=== PATIENT | male | born 1995 | race Caucasian/White ===

== ENCOUNTER 2018-01-22 12:56 | Emergency (ER) | payer SELFPAY ==
[2018-01-22 13:03] VITALS: BP 151/71; PULSE 95; RESP 20; TEMP 98.2; O2SAT 98
--- NOTE | 2018-01-22 13:32 | RADRPT ---
EXAM DATE: 01/22/2018 1:25 PM EDT AGE/SEX: 22 years / Male INDICATIONS: Chest pain. CLINICAL DATA: This is the patient's initial encounter. Patient reports that signs and symptoms have been present for 1 day and indicates a pain score of 10/10. MEDICAL/SURGICAL HISTORY: None. None. COMPARISON: No prior exams available for comparison. FINDINGS: PA and lateral views of the chest demonstrate the lungs to be symmetrically aerated without evidence of mass, infiltrate or effusion. The cardiomediastinal contours are unremarkable. Osseous structures are intact. CONCLUSION: Negative examination. Electronically signed by: Michael Carter MD 01/22/2018 1:31 PM EDT
[2018-01-22 14:19] LABS: AUTOMATED NEUTROPHIL # 10.6 TH/MM3 (1.8-7.7); BASOPHIL % 0.4 % (0.0-2.0); EOSINOPHIL # 0.2 TH/MM3 (0-0.4); EOSINOPHIL % 1.8 % (0.0-4.0); HEMATOCRIT 42.8 % (39.0-51.0); HEMOGLOBIN 15.1 GM/DL (13.0-17.0); LYMPH % 11.3 % (9.0-44.0); LYMPHOCYTE # 1.5 TH/MM3 (1.0-4.8); MEAN CORPUSCULAR HEMOGLOBIN 28.2 PG (27.0-34.0); MEAN CORPUSCULAR HGB CONC 35.2 % (32.0-36.0); MEAN PLATELET VOLUME 7.5 FL (7.0-11.0); MONO % 7.8 % (0.0-8.0); MONOCYTE # 1.1 TH/MM3 (0-0.9); NEUT % 78.7 % (16.0-70.0); PLATELET COUNT 194 TH/MM3 (150-450); RED BLOOD COUNT 5.35 MIL/MM3 (4.50-5.90); RED CELL DISTRIBUTION WIDTH 12.4 % (11.6-17.2); WHITE BLOOD COUNT 13.5 TH/MM3 (4.0-11.0)
[2018-01-22 14:28] LABS: BICARBONATE 23.8 MEQ/L (21.0-32.0); CREATININE 0.97 MG/DL (0.60-1.30)
--- NOTE | 2018-01-22 14:31 | PD ---
HPI Chief Complaint: Chest Pain Time Seen by Provider: 14:21 Travel History International Travel<30 days: No Contact w/Intl Traveler<30days: No Traveled to known affect area: No History of Present Illness HPI Patient comes to the emergency department complaining of right-sided chest pain that began yesterday morning when he awoke. Patient reports a day before he had gone fishing when he woke up yesterday some soreness in the right side of his chest. Patient reports that he went to a more fishing yesterday and the pain got progressively worse. Patient reports taking ibuprofen and Percocet for the pain he had from recent dental procedure with minimal to no improvement symptoms. Pain is worse with certain movement, cough, sneezing, and deep inspiration. Denies any direct trauma or fevers. Denies any sudden or family history of heart disease before age 30. [facility] Past Medical History Medical History: Denies Significant Hx Social History Alcohol Use: No Tobacco Use: No Substance Use: No Review of Systems Except as stated in HPI: all other systems reviewed are Neg Physical Exam Narrative GENERAL: Well-developed, overly nourished, in no acute distress, and non-ill appearing. SKIN: Focused skin assessment warm and dry. HEAD: Atraumatic. Normocephalic. EYES: Pupils equal and round. EOMI. No scleral icterus. No injection or drainage. ENT: No nasal bleeding or discharge. Mucous membranes pink and moist. NECK: Trachea midline. No JVD. Supple. No nuclear rigidity. CARDIOVASCULAR: Regular rate and rhythm. No murmur appreciated. RESPIRATORY: No accessory muscle use. No respiratory distress. Clear to auscultation. Breath sounds equal bilaterally. Patient reports tenderness palpation of right anterior chest wall. GASTROINTESTINAL: Abdomen soft, non-tender, nondistended, and no guarding. Hepatic and splenic margins not palpable. Normal bowel sounds x4. No pulsatile mass. MUSCULOSKELETAL: No obvious deformities. No clubbing. No cyanosis. No edema. Full range of motion. NEUROLOGICAL: Awake and alert. No obvious cranial nerve deficits. Motor grossly within normal limits. Normal speech. PSYCHIATRIC: Appropriate mood and affect; insight and judgment normal. Data Data Last Documented VS Vital Signs Date Time Temp Pulse Resp B/P (MAP) Pulse Ox O2 Delivery O2 Flow Rate FiO2 01/22/18 13:03 98.2 95 20 151/71 (97) 98 Orders Orders Complete Blood Count With Diff (01/22/18 13:06) Basic Metabolic Panel (Bmp) (01/22/18 13:06) Chest, Pa & Lat (01/22/18 13:06) Electrocardiogram (01/22/18 13:06) Ed Discharge Order (01/22/18 14:35) Labs Laboratory Tests Test 01/22/18 14:00 White Blood Count 13.5 TH/MM3 Red Blood Count 5.35 MIL/MM3 Hemoglobin 15.1 GM/DL Hematocrit 42.8 % Mean Corpuscular Volume 80.0 FL Mean Corpuscular Hemoglobin 28.2 PG Mean Corpuscular Hemoglobin Concent 35.2 % Red Cell Distribution Width 12.4 % Platelet Count 194 TH/MM3 Mean Platelet Volume 7.5 FL Neutrophils (%) (Auto) 78.7 % Lymphocytes (%) (Auto) 11.3 % Monocytes (%) (Auto) 7.8 % Eosinophils (%) (Auto) 1.8 % Basophils (%) (Auto) 0.4 % Neutrophils # (Auto) 10.6 TH/MM3 Lymphocytes # (Auto) 1.5 TH/MM3 Monocytes # (Auto) 1.1 TH/MM3 Eosinophils # (Auto) 0.2 TH/MM3 Basophils # (Auto) 0.0 TH/MM3 CBC Comment DIFF FINAL Differential Comment Blood Urea Nitrogen 10 MG/DL Creatinine 0.97 MG/DL Random Glucose 108 MG/DL Calcium Level 9.0 MG/DL Sodium Level 138 MEQ/L Potassium Level 3.9 MEQ/L Chloride Level 103 MEQ/L Carbon Dioxide Level 23.8 MEQ/L Anion Gap 11 MEQ/L Estimat Glomerular Filtration Rate 96 ML/MIN [facility] Medical Decision Making Medical Screen Exam Complete: Yes Emergency Medical Condition: Yes Interpretation(s) EKG reviewed by Dr. Sy shows sinus rhythm with ventricular rate 73. No STEMI. Differential Diagnosis Pneumonia, arrhythmia, muscle strain, musculoskeletal pain, pleurisy, atypical chest pain Narrative Course The patients chest pain by history and evaluation appears noncardiac, nor noncardiopulmonary in etiology. There is no clinical evidence to suggest thoracic aortic aneurysm or pathology, nor evidence to suggest pulmonary embolism, pericarditis, pneumothorax, nor pneumonia at this time. The patient has no significant risk factors for cardiac disease, pulmonary embolism or aortic disease. Clinical suspicion was discussed with patient and the patient was instructed to follow up with their doctor. The patient agreed with plan. Patient in no obvious distress upon re-evaluation. All pertinent laboratory/ Radiology result(s) discussed with patient. Discussed patient with Dr. Sy prior to discharge, who is in agreement with plan of care and disposition. Any questions/concerns in reference to patient diagnosis/ condition discussed and clarified prior to patient's discharge. Reinforced sheer importance of close follow up with patient's primary physician or primary care clinic. Instructed patient to return to ED immediately, if symptoms return/ worsen. Patient showed understanding of above instructions. Further instructions and recommendations were detailed in discharge paperwork. Patient ambulated without difficulty out of ED at discharge. Diagnosis Primary Impression: Non-cardiac chest pain Referrals: [facility] Patient Instructions: General Instructions, Noncardiac Chest Pain (ED) Additional Instructions: Follow-up with your primary care physician this week for reevaluation. Use over -the-counter Tylenol and ibuprofen as needed for pain. Follow instructions on the packaging. Return to the emergency department if symptoms get worse. Disposition: 01 DISCHARGE HOME Condition: Stable Dewayne Bautista Jan 22, 2018 14:31
--- NOTE | 2018-01-22 19:33 | EKG ---
Date Performed: 01/22/2018 Time Performed: 14:29:19 PTAGE: 22 years EKG: Sinus rhythm NORMAL ECG NO PREVIOUS TRACING DOCTOR: Chinedu Duong Interpretating Date/Time 01/22/2018 19:33:02
== END 2018-01-22 14:51 | disposition home or self-care (01) ==
LOC: NEPD 12:56
DX: R07.89 Other chest pain (principal)
CPT/HCPCS: 71046; 80048; 85025; 93005; 99285